=== PATIENT | female | born 1975 | race Caucasian/White ===

== ENCOUNTER 2017-09-22 10:16 | Outpatient (CLI) | payer OTHER ==
[~2017-09-22 10:16] MED LIST: VINACAL B PREN1 EACH
== END 2017-09-22 11:22 | disposition home or self-care (01) ==
LOC: MAMO-SONO 10:16
DX: N60.11 Diffuse cystic mastopathy of right breast (principal); Z12.31 Encounter for screening mammogram for malignant neoplasm of breast; N92.5 Other specified irregular menstruation; N84.9 Polyp of female genital tract, unspecified